=== PATIENT | male | born 1990 | race American Indian/Alaskan Native ===

== ENCOUNTER 2016-08-22 13:11 | Emergency (ER) | payer MEDICAID, OTHER ==
--- NOTE | 2016-08-22 13:26 | C.PDOC ---
History Of Present Illness 25M c/o pain in bilateral lower rear molar for last several months. he says he has been "back and forth" to [facility] [place] during this time, when asked how many he says "I lost count." he denies taking any antibiotics in the recent past and says he has been taking ibuprofen for pain. he has noted intermittent drainage from the right rear molar. he says he has not tried to see a dentist yet. Time Seen by Provider: 08/22/16 13:13 Chief Complaint (Nursing): ENT Problem Past Medical History Vital Signs: Last Vital Signs Temp 97.8 F 08/22/16 13:26 Pulse 56 L 08/22/16 13:26 Resp 18 08/22/16 13:26 BP 141/82 08/22/16 13:26 Pulse Ox 99 08/22/16 13:26 Family History: States: Other Other Family History: nc Review Of Systems Constitutional: Negative for: Fever, Chills, Weakness, Malaise Cardiovascular: Negative for: Chest Pain Respiratory: Negative for: Shortness of Breath Gastrointestinal: Negative for: Vomiting, Abdominal Pain Neurological: Negative for: Weakness, Numbness, Headache Physical Exam - Physical Exam Appears: Well, Non-toxic, No Acute Distress Skin: Warm, Dry Head: Atraumatic Eye(s): bilateral: PERRL, EOMI Oral Mucosa: Moist, No Drooling Tongue: No Swelling, No Lesions Lips: No Swelling, No Lesions Gingiva: Abscess (right gingiva adjacent to rear molar is draining pus) Throat: No Erythema, No Exudate, No Drooling Neck: Normal ROM, Supple, Other (no trismus, no submental or sublingual induration, handling secretions well, normal phonation) Medical Decision Making Medical Decision Making: I&D note: right rear dental abscess pt gave verbal consent for procedure. time out done. 1% lidocaine used for anesthesia and 11 blade scapel used to further I&D right sided abscess. pt tolerated well without immediate complication. dental resources list provided- disc importance of dental follow up. pt verbalized understanding. Disposition - Disposition Disposition: HOME/ ROUTINE Disposition Time: 13:51 Condition: GOOD - Clinical Impression Clinical Impression: Dental abscess
[2016-08-22] MEDS ORDERED: Lidocaine 1%/Epinephrine 1:100000 30 ml vial IJ STA (13:33)
[2016-08-22] MEDS ORDERED: Lidocaine 1% Inj (20ml) ONE (13:34)
[2016-08-22 13:38] VITALS: RESP 18; O2SAT 99; BMI 21.7
[2016-08-22] MEDS ORDERED: Lidocaine 1% Inj (20ml) INFIL ONE (13:53)
[2016-08-22 14:21] VITALS: BP 155/88; PULSE 45; TEMP 97.7
== END 2016-08-22 14:20 | disposition home or self-care (01) ==
LOC: C.ER 13:11
DX: K04.7 Periapical abscess without sinus (principal)
CPT/HCPCS: 96372; 99283; J1885